=== PATIENT | female | born 1980 | race Caucasian/White ===

== ENCOUNTER 2019-12-01 03:33 | Observation (INO) | payer OTHER ==
[~2019-12-01] VITALS: Ht 182.9 cm; Wt 128.5 kg
--- NOTE | 2019-12-01 04:44 | NUR ---
PT STABLE, VSS, WAITING FOR LP UNDER FLURO. AIDET PROVIDED. ALL NEEDS MET.
[2019-12-01 05:45] VITALS: BP 130/82
[2019-12-01 08:04] VITALS: BP 106/71
[2019-12-01] MEDS ORDERED: LABETALOL 5MG/ML, 20ML IVPush PRN (11:00)
[2019-12-01] MEDS ORDERED: hydrALAzine 20 MG/ML, 1ML IVPush PRN (11:00)
[2019-12-01] MEDS: SENNA/DOCUSATE TABLET PO SCH (11:00)
[2019-12-01] MEDS ORDERED: ACETAMINOPHEN 325 MG TABLET PO PRN (11:00)
[2019-12-01] MEDS ORDERED: MELATONIN 5 MG TABLET PO PRN (11:00)
[2019-12-01] MEDS ORDERED: BACLOFEN 10 MG TABLET PO PRN (11:00)
[2019-12-01] MEDS ORDERED: GUAIFENESIN/DM 200-20MG, 10ML UDC PO PRN (11:00)
[2019-12-01] MEDS ORDERED: ONDANSETRON ODT 4 MG PO PRN (11:00)
[2019-12-01] MEDS ORDERED: BUTALB/APAP/CAFFEINE 50MG/325MG/40MG PO PRN (11:00)
[2019-12-01] MEDS ORDERED: PLEASE ENTER ALLERGIES MC SCH ×2 (11:30→12:30)
[2019-12-01] MEDS: ZINC SULFATE 220 MG CAPSULE PO SCH (12:19)
[2019-12-01] MEDS: MULTIVITS,STRESS FORMULA 1 TABLET PO SCH (12:20)
[2019-12-01] MEDS: CHOLECALCIFEROL 5,000u TAB PO SCH (12:20)
[2019-12-01] MEDS ORDERED: LIDOCAINE-MPF 1%, 5ML ONE (12:34)
[2019-12-01] MEDS: ONDANSETRON 2MG/ML, 2ML IVPush PRN (14:05)
[2019-12-01 15:00] VITALS: BP 113/81
[2019-12-01 15:26] LABS: GLUCOSE, CSF 45 mg/dL (40-80); TOTAL PROTEIN,CSF 22 mg/dL (15-45)
[2019-12-01] MEDS: BUTALB/APAP/CAFFEINE 50MG/325MG/40MG PO PRN (17:17)
[2019-12-01] MEDS: ASCORBIC ACID 500 MG TABLET PO SCH (17:46)
[2019-12-01 20:57] VITALS: BP 96/69
[2019-12-02] MEDS: ONDANSETRON 2MG/ML, 2ML IVPush PRN (00:49)
[2019-12-02 01:03] VITALS: BP 118/74
[2019-12-02] MEDS: BUTALB/APAP/CAFFEINE 50MG/325MG/40MG PO PRN (05:28)
[2019-12-02] MEDS ORDERED: LEVOTHYROXINE 150 MCG TABLET PO SCH (06:00)
[2019-12-02 06:19] LABS: BASOPHILS % (AUTO) 0 % (0-1); EOSINOPHILS % (AUTO) 5 % (1-7); LYMPHOCYTES % (AUTO) 20 % (22-44); MEAN CORPUSCULAR HEMOGLOBIN 28.2 pg (27.0-34.8); MEAN CORPUSCULAR HGB CONC 32.9 g/dL (32.4-35.8); MEAN PLATELET VOLUME 7.6 fL (7.4-10.4); MONOCYTES % (AUTO) 5 % (2-9); NEUTROPHILS % (AUTO) 70 % (42-75); PLATELET COUNT 315 x10^3/uL (130-400); RED BLOOD COUNT 4.81 x10^6/uL (3.82-5.3); RED CELL DISTRIBUTION WIDTH 14.5 % (9.6-15.2)
[2019-12-02 06:33] LABS: MD NO
[2019-12-02 07:55] VITALS: BP 103/70
[2019-12-02] MEDS: CHOLECALCIFEROL 5,000u TAB PO SCH (08:22)
[2019-12-02] MEDS: ASCORBIC ACID 500 MG TABLET PO SCH ×2 (08:22→17:00)
[2019-12-02] MEDS: SENNA/DOCUSATE TABLET PO SCH (08:22)
[2019-12-02] MEDS: ZINC SULFATE 220 MG CAPSULE PO SCH (08:22)
[2019-12-02] MEDS: MULTIVITS,STRESS FORMULA 1 TABLET PO SCH (08:22)
[2019-12-02 16:43] VITALS: BP 111/75
== END 2019-12-02 17:21 | disposition home or self-care (01) ==
LOC: ED 04:28 → EDIP 05:08 → INTOOBSV 05:08 → 3N 05:39
PROVIDERS: ADMIT Family Medicine; ATTEND Family Medicine
DX: R51.9 Headache, unspecified (principal); Z20.828 Contact with and (suspected) exposure to other viral communicable diseases; M54.2 Cervicalgia; E03.9 Hypothyroidism, unspecified; E66.9 Obesity, unspecified; J45.909 Unspecified asthma, uncomplicated; Z79.899 Other long term (current) drug therapy; Z85.850 Personal history of malignant neoplasm of thyroid
CPT/HCPCS: 36415; 62328; 82945; 83735; 84157; 85025; 86592; 86645; 86695; 86696; 86762; 86777; 86778; 86788; 86789; 87070; 87116; 87205; 87206; 87210; 87476; 87496; 87635; 87798; 88108; 89051; 96374; 96376; 97162; 99284; G0378; J2405